=== PATIENT | female | born 1980 | race Two or more races ===

== ENCOUNTER 2020-11-09 05:17 | Day surgery (SDC) | payer OTHER ==
[~2020-11-09] VITALS: Ht 165.1 cm; Wt 113.4 kg
[2020-11-09] VITALS (11 sets, daily range): BP systolic 103–134; BP diastolic 47–79
[~2020-11-09 05:17] MED LIST: HYDROCODON-ACE1 EA15 ORAL; TRAMADOL HCL50 MG ORAL
[2020-11-09] MEDS ORDERED: Metoclopramide 10mg/2ml Inj IVP PRN (06:45)
[2020-11-09] MEDS ORDERED: HYDROcodone/Acetamin 7.5/325 tab ORAL PRN (06:45)
[2020-11-09] MEDS ORDERED: oxyCODONE HCL/Acetaminophen 5/325mg ORAL PRN (06:45)
[2020-11-09] MEDS ORDERED: Hydromorphone 0.5mg/0.5ml inj IVP PRN (06:45)
[2020-11-09] MEDS ORDERED: Midazolam 2mg/2ml Inj IVP PRN (06:45)
[2020-11-09] MEDS ORDERED: Ketorolac 30mg Inj IV PRN ×2 (06:45)
[2020-11-09] MEDS ORDERED: Labetalol 5mg/ml 20ml vial IV PRN (06:45)
[2020-11-09] MEDS ORDERED: HYDROcodone/Acetamin 5/325 tab ORAL PRN ×2 (06:45→07:00)
[2020-11-09] MEDS ORDERED: LR 1000ml 1,000 ML IVLG SCH (06:45)
[2020-11-09] MEDS ORDERED: LORazepam Inj 2mg/ml 1ml IV PRN (06:45)
[2020-11-09] MEDS ORDERED: DiphenhydrAMINE 50mg/ml Inj IVP PRN (06:45)
[2020-11-09] MEDS ORDERED: fentaNYL 100 mcg/2 mL IV PRN (06:45)
[2020-11-09] MEDS ORDERED: Meperidine 25mg/1ml Inj (FOR RIGORS ONLY) IV PRN (06:45)
[2020-11-09] MEDS ORDERED: Atropine Sulfate 0.4mg/ml inj IVP PRN (06:45)
[2020-11-09] MEDS ORDERED: Lidocaine 1% MPF 10mg/ml 5ml ONE (06:51)
--- NOTE | 2020-11-09 06:51 | Anethesia Preoperative Eval ---
Anesthesia Pre-op PMH/ROS General Date of Evaluation: Nov 09, 2020 Time of Evaluation: 06:49 Anesthesiologist: Miranda ASA Score: ASA 3 Mallampati Score Class I : Soft palate, uvula, fauces, pillars visible Class II: Soft palate, uvula, fauces visible Class III: Soft palate, base of uvula visible Class IV: Only hard plate visible Mallampati Classification: Class III Surgeon: Devaughn Diagnosis: L Shoulder Pain Surgical Procedure: L Shoulder Open Reduction and Fixation Anesthesia History: none Family History: no anesthesia problems Allergies: Coded Allergies: No Known Allergies (Unverified , 11/08/20) Medications: see eMAR Patient NPO?: Yes Past Medical History Cardiovascular: Reports: HTN Hematology/Immune: Reports: anemia Other: obesity - Morbid BMI 43 Anesthesia Pre-op Phys. Exam Physician Exam Last Vital Signs Date Time Temp Pulse Resp B/P (MAP) Pulse Ox O2 Delivery O2 Flow Rate FiO2 11/09/20 05:55 97.9 97 18 134/79 98 Room Air Constitutional: NAD Neurologic: CN 2-12 intact Cardiovascular: RRR Respiratory: CTA Gastrointestinal: S/NT/ND Airway Exam Mallampati Score: Class III MO: limited ROM: limited Teeth: missing, intact Anesthesia Pre-op A/P Labs Urine Test Test 11/09/20 05:25 Urine HCG, Qualitative Negative (NEGATIVE) Risk Assessment & Plan Assessment: ASA 3 Plan: GA, Supraclavicular Block, SED Status Change Before Surgery: No Pre-Antibiotics Dru Grams Ancef IV Given Within 1 Hr of Incision: Yes Time Given: 07:21 Jaiden Jean MD Nov 09, 2020 06:51
--- NOTE | 2020-11-09 06:52 | Pre-Procedure Note/Attestation ---
Pre-Procedure Note/Attestation Complete Prior to Procedure Planned Procedure: left Procedure Narrative: proximal humerus ORIF Indications for Procedure Pre-Operative Diagnosis: Left proximal humerus fracture Attestation I attest that I discussed the nature of the procedure; its benefits; risks and complications; and alternatives (and the risks and benefits of such alternatives), prior to the procedure, with the patient (or the patient's legal footwear sales representative). I attest that, if there was a reasonable possibility of needing a blood transfusion, the patient (or the patient's legal footwear sales representative) was given the [facility] standardized written summary, pursuant to the [place] [employer] Blood Safety Act ([place] Health and Safety Code # 1645, as amended). I attest that I re-evaluated the patient just prior to the surgery and that there has been no change in the patient's H&P, except as documented below: Basil Cantor MD Nov 09, 2020 06:52
[2020-11-09] MEDS ORDERED: Adenosine 6mg/2ml Inj ONE (06:53)
[2020-11-09] MEDS ORDERED: Ropivacaine 5mg/ml Vial 20ml INJ ONE (06:53)
[2020-11-09] MEDS ORDERED: Sterile Water Irrig 1000ml IRRIG ONE (07:00)
[2020-11-09] MEDS ORDERED: Tylenol #3 tab (300mg/30mg) ORAL PRN (07:00)
[2020-11-09] MEDS ORDERED: HYDROmorphone 1mg/ml Carpuject SUBQ PRN (07:00)
[2020-11-09] MEDS ORDERED: LR 1000ml ONE (07:00)
[2020-11-09] MEDS ORDERED: Tranexamic Acid 1,000 MG in NS 65 ML IVPB ONE (07:00)
[2020-11-09] MEDS ORDERED: NS Irrig 1000ml ONE (07:00)
[2020-11-09] MEDS ORDERED: Labetalol 5mg/ml 20ml vial IV ONE (07:00)
[2020-11-09] MEDS ORDERED: Vancomycin 1gm vial IVPB ONE (08:20)
--- NOTE | 2020-11-09 09:37 | Brief Operative Note ---
Immediate Post Operative Note Operative Note Pre-op Diagnosis: Left proximal humerus fracture Procedure: Left proximal humerus ORIF Post-op Diagnosis: Left proximal humerus fracture Post-op Diagnosis: same as pre-op Findings: consistent w/pre-op dx studies Surgeon: Basil Cantor MD Anesthesia: general, regional Specimen: none Complications: none Condition: stable Fluids: per anesthesia records Estimated Blood Loss: volume - 100ml Drains: none Implant(s) used?: Yes - [place] proximal humerus plate 3-hole Basil Cantor MD Nov 09, 2020 09:37
--- NOTE | 2020-11-09 09:52 | Immediate Post-Op Evaluation ---
Immediate Post-Op Evalulation Immediate Post-Op Evalulation Procedure: L Shoulder Open Reduction and Fixation Date of Evaluation: Nov 09, 2020 Time of Evaluation: 10:05 IV Fluids: 800 LR Blood Products: 0 Estimated Blood Loss: 100 Urinary Output: 0 Blood Pressure Systolic: 103 Blood Pressure Diastolic: 66 Pulse Rate: 88 Respiratory Rate: 16 O2 Sat by Pulse Oximetry: 100 Temperature (Fahrenheit): 97.8 Pain Score (1-10): 1 Nausea: No Vomiting: No Complications 0 Patient Status: awake, reacts, patent, none Hydration Status: adequate Dru Grams Ancef IV Given Within 1 Hr of Incision: Yes Time Given: 07:21 Jaiden Jean MD Nov 09, 2020 09:52
--- NOTE | 2020-11-09 09:53 | 48 Hour Post Anesthesia Eval ---
Post Anesthesia Evaluation Procedure: L Shoulder Open Reduction and Fixation Date of Evaluation: Nov 09, 2020 Time of Evaluation: 12:23 Blood Pressure Systolic: 122 0: 71 Pulse Rate: 87 Respiratory Rate: 18 Temperature (Fahrenheit): 98 O2 Sat by Pulse Oximetry: 100 Airway: patent Nausea: No Vomiting: No Pain Intensity: 1 Hydration Status: adequate Cardiopulmonary Status: Stable Mental Status/LOC: patient returned to baseline Follow-up Care/Observations: 0 Post-Anesthesia Complications: 0 Follow-up care needed: ready to discharge Jaiden Jean MD Nov 09, 2020 09:53
--- NOTE | 2020-11-09 11:25 | Diagnostic Imaging Report ---
INDICATION: Shoulder pain TECHNIQUE: Intraoperative fluoroscopy of the left shoulder. 6 fluoroscopic stored images obtained by Dr. Cantor. Total dose 4.25mGy, fluoro time 39.6s COMPARISON: None FINDINGS: Intraoperative fluoroscopy demonstrates open reduction and internal fixation of left humeral fracture. IMPRESSION: Intraoperative fluoroscopy of left humeral fracture open reduction and internal fixation. Please refer to operative report for more detail.
[2020-11-09] MEDS ORDERED: D5 1/2NS 1,000 ML IV SCH (12:00)
--- NOTE | 2020-11-09 15:30 | Operative Note - Dictated ---
DATE OF OPERATION: 11/09/2020 PREOPERATIVE DIAGNOSIS: Left proximal humerus fracture, displaced. POSTOPERATIVE DIAGNOSIS: Left proximal humerus fracture, displaced. PROCEDURE PERFORMED: 1. Left proximal humerus open reduction and internal fixation. 2. Intraoperative fluoroscopic interpretation. SURGEON: Basil Cantor MD.. ANESTHESIA: General and regional. FLUIDS: Per Anesthesia records. ESTIMATED BLOOD LOSS: 100 mL IMPLANTS: 1. Pankaj left proximal humerus locking plate, three-hole. 2. Combination of cancellous, cortical, and locking screws. COMPLICATIONS: None apparent. CONDITION/DISPOSITION: Stable to recovery room. PROCEDURE IN DETAIL: On 11/09/2020, the patient was met in the preoperative holding area. The left shoulder was marked with indelible ink and the consent form was reviewed and signed. We discussed risks of surgery including bleeding, infection, damage to nearby neurovascular structures, continued pain, stiffness, need for additional surgery, malunion, nonunion, AVM, blood clots, stroke, and . She expressed understanding of the above and elected to proceed. The consent form was signed. The patient was then taken to the operating room, where she was placed supine on the operating table with all body prominences well padded. There, a regional block was performed by the anesthesia care team without apparent complications. The patient was then repositioned to a modified beach-chair position. The left upper extremity was then prepped and draped in the usual sterile fashion. A surgical timeout was then undertaken confirming preoperative antibiotics. Left shoulder open reduction and internal fixation: A standard deltopectoral incision was performed. This was carried down to the fascia. The cephalic vein was then identified and freed both proximally and distally. The feeders from the deltoid were cauterized. was taken medially. The interval was then deepened. The conjoint tendon was identified. The clavipectoral fascia was then incised. Subdeltoid adhesions were bluntly freed. A deltoid retractor was then placed. The fracture was then identified, was dislocated posteriorly and superiorly. Adhesions and soft callus were removed and the fracture was liberated. The fracture site was then cleaned of intervening soft tissue. The grater tuberosity was then reduced with the assistance of a #5 FiberWire that was placed in the supraspinatus tendon. A K-wire was then placed to hold the reduction temporarily. Postoperative imaging was obtained to confirm appropriate reduction of the fracture. Following this, we chose a 3-hole proximal humerus locking plate. It was placed and positioned under fluoroscopic guidance. We then placed a cortical screw distally and proximally. Fluoroscopic imaging was obtained to confirm appropriate placement of the plate. Following this, we passed the #5 FiberWire stitch through the plate and tied a knot. A combination of locking and nonlocking screws were then placed proximally. An additional 2 nonlocking screws were placed distally in the shaft. The provisional K-wire was removed. The shoulder was taken through a range of motion and the construct was felt to be stable. Fluoroscopic imaging was obtained to confirm appropriate reduction of the fracture, plate placement, and maintained anatomic reduction. Following this, we proceeded with the closure. Closure: The wound was thoroughly irrigated with normal saline. The interval was reapproximated using an 0 Vicryl in a [id number] fashion. The skin was closed using a 2-0 Vicryl in an inverted intraoperative fashion, followed by lauro. Dressing was then applied. The patient was then placed in the standard postop sling with a pillow. She was then awakened and transferred to the recovery area in stable condition. All sponge and needle counts were correct at the conclusion of the case. POSTOPERATIVE PLAN: The patient will be nonweightbearing with the left upper extremity for a total of six weeks. She will start pendulum exercises. Basil Cantor M.D. DR: ACE JOB#: [id number] CC:
== END 2020-11-09 12:00 | disposition home or self-care (01) ==
LOC: SUR 05:17
DX: S42.202A Unspecified fracture of upper end of left humerus, initial encounter for closed fracture (principal); I10 Essential (primary) hypertension; E66.9 Obesity, unspecified; D64.9 Anemia, unspecified; Z68.41 Body mass index [BMI] 40.0-44.9, adult; X58.XXXA Exposure to other specified factors, initial encounter; Y92.9 Unspecified place or not applicable
CPT/HCPCS: 23615; 73020; 76000; 81025; 94003; C1713; J0153; J0690; J1100; J2250; J2405; J2704; J2795; J3370; J7120; 94150